=== PATIENT | female | born 1950 | race Caucasian/White ===

== ENCOUNTER 2017-06-21 09:19 | Emergency (ER) | payer OTHER ==
[~2017-06-21] VITALS: Ht 162.6 cm; Wt 86.2 kg
--- NOTE | 2017-06-21 09:28 | NUR ---
PATIENT AMBULATED TO BED 4 AT THIS TIME.
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
[2017-06-21 09:35] VITALS: BP 155/83
--- NOTE | 2017-06-21 10:00 | NUR ---
pt to ct
--- NOTE | 2017-06-21 10:10 | NUR ---
pt returned from ct
--- NOTE | 2017-06-21 10:56 | NUR ---
Patient discharged with v/s stable. Written and verbal after care instructions given and explained. Patient verbalized understanding. Ambulatory with steady gait. All questions addressed prior to discharge. Advised to follow up with PMD.
[2017-06-21 10:57] VITALS: BP 137/89
== END 2017-06-21 10:56 | disposition home or self-care (01) ==
LOC: MED 09:19
DX: S02.2XXA Fracture of nasal bones, initial encounter for closed fracture (principal); E11.9 Type 2 diabetes mellitus without complications; K21.9 Gastro-esophageal reflux disease without esophagitis; I10 Essential (primary) hypertension; E78.5 Hyperlipidemia, unspecified; Z88.0 Allergy status to penicillin; W22.8XXA Striking against or struck by other objects, initial encounter; Y93.89 Activity, other specified; Y92.89 Other specified places as the place of occurrence of the external cause; Y99.8 Other external cause status
CPT/HCPCS: 70486; 99284